=== PATIENT | female | born 1945 | race Caucasian/White ===

== ENCOUNTER → 2016-12-12 | Day surgery (SDC) | payer MEDICARE, OTHER ==
[~2016-12-12] MED LIST: Lactated Ringers 1,000 ML IV SCH; Propofol 200 MG/20 ML SDV IV ONE
[2016-12-12 11:21] VITALS: BP 138/75
--- NOTE | 2016-12-15 07:43 | OR ---
DATE OF OPERATION: 12/12/2016 PREOPERATIVE DIAGNOSIS: SCREENING COLONOSCOPY. POSTOPERATIVE DIAGNOSIS: SCREENING COLONOSCOPY. SURGEON: Barrington Nails MD PROCEDURE: FULL-LENGTH COLONOSCOPY WITH POLYP REMOVAL X1. 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 COMPLICATIONS: None. SPECIMEN: Rectal polyp likely hyperplastic. FINDINGS: 1. Full-length colonoscopy. 2. Moderate sigmoid diverticulosis. 3. Flat rectal polyp, likely hyperplastic. RECOMMENDATIONS: Follow up colonoscopy. Pending path report. INDICATIONS: The patient has not had a colonoscopy for over 12 years. She was sent for screening. DESCRIPTION OF PROCEDURE: The patient was prepped and draped, placed in the left lateral decubitus position. Lubricated Olympus colonoscope was inserted and relatively easily advanced to the cecum. Direct visualization of the cecal pouch was difficult due to the amount of stool present, it was very thick with particulate food matter, scope got plugged couple times trying irrigate through this, but we were able to see the valve. The pouch itself was difficult to visualize. Upon withdrawal for the most part, the ascending, transverse, and descending colons appeared benign. Prep was poor on the right side extending about the mid transverse colon. There were some sketchy areas on the left side as well. The patient does have moderate diverticular disease throughout most of the left colon through the sigmoid and rectosigmoid junction, but no obvious signs of polyps, masses, ulcerations, or bleeding sites. No vascular abnormalities or signs of colitis. The rectal vault appeared benign. There was a lot of food present here as well, and there was one flat hyperplastic appearing polyp removed with 2 cold forceps biopsies in its entirety. Retroflexion was able to be accomplished, and the perianal area appeared benign. Air was then suctioned. Scope removed without complication. DECLAN/FRANCINE /[id number]
== END ==
LOC: CC.SDS 09:54
PROVIDERS: ATTEND Family Medicine
DX: Z12.11 Encounter for screening for malignant neoplasm of colon (principal); D12.8 Benign neoplasm of rectum; K57.30 Diverticulosis of large intestine without perforation or abscess without bleeding; F41.9 Anxiety disorder, unspecified; I10 Essential (primary) hypertension; F32.9 Major depressive disorder, single episode, unspecified; F17.210 Nicotine dependence, cigarettes, uncomplicated; Z90.710 Acquired absence of both cervix and uterus; Z90.49 Acquired absence of other specified parts of digestive tract; Z98.84 Bariatric surgery status; Z98.890 Other specified postprocedural states
CPT/HCPCS: 45380; J2704; J7120; 00810; 88305

== ENCOUNTER 2017-02-23 18:45 | Emergency (ER) | payer MEDICARE, OTHER ==
[2017-02-23 18:54] VITALS: BP 127/66
[2017-02-23] MEDS ORDERED: Ondansetron 4 MG/2 ML SDV IVPUSH STA (19:21)
--- NOTE | 2017-02-23 19:32 | EDM.PDOC ---
ED HPI GENERAL MEDICAL PROBLEM - General Chief Complaint: General Stated Complaint: left side pain Time Seen by Provider: 02/23/17 19:05 Source of Information: Reports: Patient History Limitations: Reports: No Limitations - History of Present Illness INITIAL COMMENTS - FREE TEXT/NARRATIVE: This patient is a 71 year old female that presents to the ER. Patient is with her daughter. Patient reports that for the past 4 weeks she has had a pain in left lower back and left side and into her left lower abdominal quadrant. The patient reports that about 4 weeks ago she was treated for a UTI, but the pain continued. She reports that today she went to the grocery store and walked from her vehicle. She reports then as the day progressed her pain became worse. The patient described its as constant, but has periods where it feels like it "spasms" and becomes severe. The patient reports she is scheduled for an injection tomorrow, but she was afraid she would not be able to move tomorrow if she did not come to the ER for pain tonight. The patient denies diaz, dizziness , n, v, d, f, cp, soa, urinary/bowel changes. The pain is easily manipulated with palpation of the left lower back, left flank, and LLQ. Pain is made worse with the patient moving. I have reviewed recent patient visits and testing. Her BUN and CR have been a little higher than usual on last draw. She had an abdominal xray performed. I will order repeat labs to check renal function and to ensure no other findings of basic labs. I will also CT her abd/pelvis looking at kidneys and for possible stones. I have given her Valium in attempt to reduce spasms. Pulses +2, cap refill <2 sec, sensory/motor function intact, neurovascular intact. Patient is hemodynamically stable. Ongoing issue. Pain easily manipulated. No chest pain, or shortness of breath, no nausea; no indications of cardiac event or aortic event. Duration: Week(s): (4) Location: Reports: Abdomen, Back Quality: Reports: Other ("spasm") Severity: Moderate Improves with: Reports: Immobilization Worsens with: Reports: Movement Associated Symptoms: Denies: Confusion, Chest Pain, Cough, cough w sputum, Diaphoresis, Fever/Chills, Headaches, Loss of Appetite, Malaise, Nausea/Vomiting , Rash, Seizure, Shortness of Breath, Syncope, Weakness Left Hip Pain Score (Numeric/FACES): 9 - Related Data Allergies Allergy/AdvReac Type Severity Reaction Status Date / Time cefdinir [From Omnicef] Allergy Hives Verified 02/23/17 18:54 Home Meds: Home Meds Cholecalciferol (Vitamin D3) [Vitamin D] 2,000 units PO DAILY 10/05/14 [History] Hydrochlorothiazide 25 mg PO DAILY 10/05/14 [History] Losartan Potassium [Cozaar] 100 mg PO DAILY 10/05/14 [History] oxyCODONE ER [OxyCONTIN] 10 mg PO BID 10/05/14 [History] ClonazePAM [KlonoPIN] 0.25 mg PO BID 12/10/16 [History] Cyanocobalamin (Vitamin B-12) [Cyanocobalamin Injection] 1,000 mcg IM Q30D 12/10 [History] Eszopiclone 3 mg PO BEDTIME 12/10/16 [History] Fluticasone Propionate [Flovent Diskus] 2 sprays NASBOTH DAILY 12/10/16 [History ] Sertraline [Zoloft] 100 mg PO DAILY 12/10/16 [History] Cyclobenzaprine HCl 10 mg PO DAILY PRN 02/23/17 [History] Nystatin [Nystatin Crm] 1 applic TOP TID PRN 02/23/17 [History] Past Medical History HEENT History: Reports: Cataract Cardiovascular History: Reports: Heart Murmur, Hypertension Genitourinary History: Reports: UTI, Recurrent, Other (See Below) Other Genitourinary History: bilateral renal cysts, over-active bladder Musculoskeletal History: Reports: Arthritis, Back Pain, Chronic, Osteoporosis, Other (See Below) Other Musculoskeletal History: myalgia Neurological History: Reports: Other (See Below) Other Neuro History: degenerative disc disease Psychiatric History: Reports: ADHD, Anxiety, Depression, Other (See Below) Other Psychiatric History: insomnia, history of alcoholism Hematologic History: Reports: B12 Deficiency - Past Surgical History HEENT Surgical History: Reports: Cataract Surgery, Naso-Sinus Surgery GI Surgical History: Reports: Appendectomy, Bariatric Procedure, Cholecystectomy Female Surgical History: Reports: Hysterectomy Neurological Surgical History: Reports: Other (See Below) Other Neurological Surgeries/Procedures: back fusion in many areas Musculoskeletal Surgical History: Reports: Arthroscopic Knee, Knee Replacement, Other (See Below) Other Musculoskeletal Surgeries/Procedures:: pins placed in right foot and ankle Social & Family History - Tobacco Use Smoking Status *Q: Never Smoker Years of Tobacco use: 5 - Recreational Drug Use Recreational Drug Use: No ED ROS GENERAL - Review of Systems Review Of Systems: See Below Constitutional: Reports: No Symptoms HEENT: Reports: No Symptoms Respiratory: Reports: No Symptoms Cardiovascular: Reports: No Symptoms Endocrine: Reports: No Symptoms GI/Abdominal: Reports: Abdominal Pain. Denies: Constipation, Diarrhea, Nausea, Vomiting : Reports: Flank Pain (left) Musculoskeletal: Reports: Back Pain (left middle/lower. ) Skin: Reports: No Symptoms Neurological: Reports: No Symptoms Psychiatric: Reports: No Symptoms Hematologic/Lymphatic: Reports: No Symptoms Immunologic: Reports: No Symptoms ED EXAM, GENERAL - Physical Exam Exam: See Below Exam Limited By: No Limitations General Appearance: Alert, WD/WN, No Apparent Distress, Other (In Pain, especially with "spasms") Eye Exam: Bilateral Eye: Normal Inspection, PERRL Ears: Normal External Exam, Normal Canal, Hearing Grossly Normal, Normal TMs Ear Exam: Bilateral Ear: Auricle Normal, Canal Normal, TM normal Nose: Normal Inspection, Normal Mucosa, No Blood Throat/Mouth: Normal Inspection, Normal Lips, Normal Gums, Normal Oropharynx, Normal Voice, No Airway Compromise Head: Atraumatic, Normocephalic Neck: Normal Inspection, Supple, Non-Tender, Full Range of Motion. No: Lymphadenopathy (L), Lymphadenopathy (R) Respiratory/Chest: No Respiratory Distress, Lungs Clear, Normal Breath Sounds, No Accessory Muscle Use, Chest Non-Tender. No: Respiratory Distress, Decreased Breath Sounds, Crackles, Rales, Rhonchi, Wheezing, Stridor, Pleural Rub, Accessory Muscle Use, Retractions, Splinting, Prolonged Expiration Cardiovascular: Normal Peripheral Pulses, Regular Rate, Rhythm, No Edema, No Gallop, No JVD, No Murmur, No Rub Peripheral Pulses: 2+: Radial (L), Radial (R), Posterior Tibial (L), Posterior Tibial (R) GI/Abdominal: Normal Bowel Sounds, Soft, No Organomegaly, No Distention, No Abnormal Bruit, No Mass, Tender (LLQ, Mild. ) Back Exam: Normal Inspection, Full Range of Motion, Decreased Range of Motion ( due to pain. Unable to flex, twist, rotate at trunk. ), Muscle Spasm (per patient, left lower back, left lateral side, LLQ abd. ), Paraspinal Tenderness ( left lower/left middle back. Left lateral side. ). No: CVA Tenderness (L), CVA Tenderness (R) Extremities: Normal Inspection, Normal Range of Motion, Non-Tender, No Pedal Edema, Normal Capillary Refill Neurological: Alert, Oriented, Normal Cognition, No Motor/Sensory Deficits Psychiatric: Normal Affect, Normal Mood Skin Exam: Warm, Dry, Intact, Normal Color, No Rash Lymphatic: No Adenopathy Course - Vital Signs Last Recorded V/S: Last Vital Signs Temp 98.3 F 02/23/17 18:50 Pulse 87 02/23/17 18:50 Resp 20 02/23/17 18:50 BP 127/66 02/23/17 18:50 Pulse Ox 96 02/23/17 18:50 - Orders/Labs/Meds Orders: Active Orders 24 hr Category Date Time Status Abdomen Pelvis wo Cont [CT] Stat Exams 02/23/17 19:49 Ordered CULTURE URINE [RM] Stat Lab 02/23/17 20:14 Ordered Sodium Chloride 0.9% [Normal Saline] 500 ml Med 02/23/17 20:15 Active IV .BOLUS Medication Orders Sodium Chloride (Normal Saline) 500 mls @ 500 mls/hr IV .BOLUS VALENTINA Last Admin: 02/23/17 20:30 Dose: 500 mls/hr Labs: Laboratory Tests 02/23/17 02/23/17 02/23/17 Range/Units 19:45 19:45 20:00 WBC 6.6 (5.0-10.0) 10^3/uL RBC 3.64 L (4.00-5.50) 10^6/uL Hgb 10.6 L (12.0-16.0) g/dL Hct 33.1 L (37.0-47.0) % MCV 90.9 (82.0-94.0) fL MCH 29.1 (27.0-32.0) pg MCHC 32.0 L (33.0-38.0) g/dL RDW Coeff of Marlo 14.3 (11.0-15.0) % Plt Count 225 (150-400) 10^3/uL Neut % (Auto) 49.2 (35-85) % Lymph % (Auto) 32.5 (10-55) % [place] % (Auto) 12.2 (0-16) % Eos % (Auto) 5.5 H (0-5) % Baso % (Auto) 0.6 (0-3) % Neut # (Auto) 3.24 (1.80-7.00) 10^3/uL Lymph # (Auto) 2.14 (1.00-4.80) 10^3/uL [place] # (Auto) 0.80 (0.00-0.80) 10^3/uL Eos # (Auto) 0.36 (0.00-0.45) 10^3/uL Baso # (Auto) 0.04 10^3/uL Sodium 137 (136-145) mEq/L Potassium 4.7 (3.5-5.0) mEq/L Chloride 104 (98-106) mEq/L Carbon Dioxide 24 (21-32) mmol/L BUN 41 H (7-18) mg/dL Creatinine 1.6 H (0.6-1.0) mg/dL Est Cr Clr Drug Dosing TNP Estimated GFR (MDRD) 32 L (>=60) mL/min Glucose 94 (75-99) mg/dL Calcium 8.7 (8.4-10.1) mg/dL Total Bilirubin 0.3 (0.0-1.0) mg/dL AST 15 (15-37) U/L ALT 16 (12-78) U/L Alkaline Phosphatase 74 (46-116) U/L Total Protein 6.8 (6.4-8.2) g/dL Albumin 3.3 L (3.4-5.0) g/dL Urine Color Yellow (YELLOW) Urine Appearance Cloudy (CLEAR) Urine pH 5.0 (4.5-8.0) Ur Specific [place] 1.011 (1.003-1.020) Urine Protein Negative (NEGATIVE) mg/dL Urine Glucose (UA) Negative (NEGATIVE) mg/dL Urine Ketones Negative (NEGATIVE) mg/dL Urine Occult Blood Small H (NEGATIVE) Urine Nitrite Positive H (NEGATIVE) Urine Bilirubin Negative (NEGATIVE) Urine Urobilinogen 0.2 (0.2-1.0) EU/dL Ur Leukocyte Esterase Large H (NEGATIVE) Urine RBC 0-5 (0-5) /HPF Urine WBC 75-100 H (0-5) /HPF Urine WBC Clumps Few H (NOT SEEN) /HPF Ur Squamous Epith Cells Occasional H (NOT SEEN) /HPF Urine Bacteria Few H (NOT SEEN) /HPF Urinalysis Comment Meds: Medications Generic Name Dose Route Start Last Admin Trade Name Freq PRN Reason Stop Dose Admin Sodium Chloride 500 mls @ 500 mls/hr 02/23/17 20:15 02/23/17 20:30 Normal Saline IV 500 mls/hr .BOLUS VALENTINA Administration Discontinued Medications Generic Name Dose Route Start Last Admin Trade Name Freq PRN Reason Stop Dose Admin Ceftriaxone Sodium 1 gm 02/23/17 20:12 02/23/17 20:26 Rocephin IVPUSH 02/23/17 20:13 1 gm ONETIME ONE Administration Diazepam 2 mg 02/23/17 19:21 02/23/17 19:38 Valium IVPUSH 02/23/17 19:22 2 mg ONETIME ONE Administration Hydromorphone HCl 1 mg 02/23/17 19:56 02/23/17 20:23 Dilaudid IVPUSH 02/23/17 19:57 1 mg ONETIME ONE Administration Hydromorphone HCl 0.5 mg 02/23/17 21:08 02/23/17 21:10 Dilaudid IVPUSH 02/23/17 21:09 0.5 mg NOW STA Administration Ondansetron HCl 4 mg 02/23/17 19:21 02/23/17 19:35 Zofran IVPUSH 02/23/17 19:22 4 mg NOW STA Administration - Radiology Interpretation Free Text/Narrative:: Abd/Pelvis without: Discussed with radiologist: Cyst right renal pole unchanged from previous, dilated ureters, No stones. Constipation. Density in color that is benign. CT Results Date: 02/23/17 CT Results Time: 21:00 Departure - Departure Time of Disposition: 21:11 Disposition: Home, Self-Care 01 Condition: Fair Clinical Impression: UTI, Urinary tract infectious disease, Renal insufficiency Constipation Qualifiers: Constipation type: other constipation type Qualified Code(s): K59.09 - Other constipation - Discharge Information Instructions: Urinary Tract Infection, Adult, [id number], Constipation, Adult Referrals: Indira Cordon PA [Primary Care Provider] - Forms: ED Department Discharge Additional Instructions: Followup with your primary care provider Return to the ER for worsening of condition or any emergent concerns Increase fluids Increase fiber Pyridium 100mg 1 pill three times a day for 2 days #6 no refill Bactrim DS 1 pill twice a day for 7 days #14 no refill - My Orders Last 24 Hours: My Active Orders 02/23/17 19:49 Abdomen Pelvis wo Cont [CT] Stat 02/23/17 20:14 CULTURE URINE [RM] Stat 02/23/17 20:15 Sodium Chloride 0.9% [Normal Saline] 500 ml IV .BOLUS - Assessment/Plan Last 24 Hours: My Active Orders 02/23/17 19:49 Abdomen Pelvis wo Cont [CT] Stat 02/23/17 20:14 CULTURE URINE [RM] Stat 02/23/17 20:15 Sodium Chloride 0.9% [Normal Saline] 500 ml IV .BOLUS Plan: PLEASE SEE RN NOTE FOR PFSH.
[2017-02-23] MEDS ORDERED: HYDROmorphone 1 MG/ML Syringe IVPUSH ONE (19:56)
[2017-02-23 20:06] LABS: CHLORIDE,CL 104 mEq/L (98-106); SODIUM,NA 137 mEq/L (136-145)
[2017-02-23] MEDS ORDERED: cefTRIAXone 1 GM Vial IVPUSH ONE (20:12)
[2017-02-23] MEDS ORDERED: Sodium Chloride 0.9% 500 ML IV SCH (20:15)
[2017-02-23] MEDS ORDERED: HYDROmorphone 1 MG/ML Syringe IVPUSH STA (21:08)
== END 2017-02-23 21:30 | disposition home or self-care (01) ==
LOC: CC.ED 18:45
DX: N39.0 Urinary tract infection, site not specified (principal); N28.9 Disorder of kidney and ureter, unspecified; I10 Essential (primary) hypertension; M19.90 Unspecified osteoarthritis, unspecified site; M81.0 Age-related osteoporosis without current pathological fracture; F32.9 Major depressive disorder, single episode, unspecified; F90.9 Attention-deficit hyperactivity disorder, unspecified type; F41.9 Anxiety disorder, unspecified; G47.00 Insomnia, unspecified; Z87.440 Personal history of urinary (tract) infections; Z79.2 Long term (current) use of antibiotics; Z98.84 Bariatric surgery status; Z90.49 Acquired absence of other specified parts of digestive tract; Z98.49 Cataract extraction status, unspecified eye; Z90.710 Acquired absence of both cervix and uterus
CPT/HCPCS: 36415; 74176; 80053; 81001; 85025; 87086; 87088; 96361; 96374; 96375; 96376; 99284; J0696; J1170; J2405; J3360; J7040; 87186

== ENCOUNTER → 2018-12-31 | Day surgery (SDC) | payer MEDICARE, OTHER ==
[2018-12-31 12:35] VITALS: BP 151/90
--- NOTE | 2019-01-03 08:57 | OR ---
DATE OF OPERATION: 12/31/2018 PREOPERATIVE DIAGNOSIS: CHRONIC COUGH. POSTOPERATIVE DIAGNOSIS: CHRONIC COUGH. SURGEON: Barrington Nails MD PROCEDURE: DIAGNOSTIC ESOPHAGOGASTRODUODENOSCOPY WITH BIOPSY X1, PRASANNA. ANESTHESIA: MAC via PANEL BUILDER. COMPLICATIONS: None. SPECIMEN: 1. CLOtest. 2. Distal esophageal biopsy x1. FINDINGS: 1. Full-length esophagogastroduodenoscopy. 2. Status post antral gastrectomy. 3. Spontaneous gastroesophageal reflux disease with possible short segment White's changes. RECOMMENDATIONS: Ongoing medical followup. INDICATIONS: The patient apparently has been having some issues with chronic cough. She is on a proton pump inhibitor for gastroesophageal reflux disease. Anderson Chris sent her for diagnostic esophagogastroduodenoscopy. DESCRIPTION OF PROCEDURE: The patient was prepped and draped, placed in the left lateral decubitus position. A lubricated Olympus gastroscope was inserted over a bit, advanced to cricopharyngeus area, and easily intubated into the esophagus. The esophageal lining appeared benign in its entire course. The Z- line was crisp and sharp around 38 to 39 cm. There is one small area that appears to possibly represent some short segment White's. I did biopsy of the leading edge without complication. There is spontaneous reflux seen. No gross or significant hiatal hernia. Scope was advanced into the stomach, which is markedly shortened, apparently status post a partial gastrectomy. It looks like the entire antrum is gone. The jejunum looks completely unremarkable. I see no signs of any peptic ulcer disease, mass, polyps, or otherwise. A CLOtest was obtained. Air was then suctioned from the stomach. Scope was removed without complication. DECLAN/FRANCINE /[id number]
== END ==
LOC: CC.SDS 09:58
PROVIDERS: ATTEND Family Medicine
DX: K21.0 Gastro-esophageal reflux disease with esophagitis (principal); R05 Cough; Z90.3 Acquired absence of stomach [part of]; E53.8 Deficiency of other specified B group vitamins; I10 Essential (primary) hypertension; R73.03 Prediabetes; M81.0 Age-related osteoporosis without current pathological fracture; M19.90 Unspecified osteoarthritis, unspecified site; E66.9 Obesity, unspecified; Z68.41 Body mass index [BMI] 40.0-44.9, adult; Z87.891 Personal history of nicotine dependence; Z88.1 Allergy status to other antibiotic agents; Z86.39 Personal history of other endocrine, nutritional and metabolic disease; Z87.442 Personal history of urinary calculi
CPT/HCPCS: 87081; J2704; J7120

== ENCOUNTER 2020-09-03 20:20 | Observation (INO) | payer MEDICARE, OTHER ==
--- NOTE | 2020-09-03 20:54 | EDM.PDOC ---
ED HPI GENERAL MEDICAL PROBLEM - General Chief Complaint: General Stated Complaint: rectal bleeding Time Seen by Provider: 09/03/20 20:42 Source of Information: Reports: Patient, RN History Limitations: Reports: No Limitations - History of Present Illness INITIAL COMMENTS - FREE TEXT/NARRATIVE: States that she noted that her pants were wet earlier. When she checked she had bright red blood and clots in her pants. She has no pain and no abdominal cramping. She denies any hemorrhoids in the past. Since she changed her diaper she has noted that she is passing clots again. She has no urge or control of the clots. Is not aware of them until she feels them in her product. No nausea or vomiting. She has had complete hysterectomy in the past. She had a total shoulder repair on the right 2 weeks again but denies any steroid or NSAID use. She has taken some tylenol for pain. Last colonoscopy 11/12/16 and was normal. She has never had problems with rectal bleeding in the past. She states that she feels "fine". Onset: Today Location: Reports: Abdomen Associated Symptoms: Denies: Fever/Chills, Nausea/Vomiting - Related Data Allergies Allergy/AdvReac Type Severity Reaction Status Date / Time cefdinir [From Omnicef] Allergy Hives Verified 09/03/20 20:23 tramadol Allergy Itching Verified 09/03/20 20:24 Home Meds: Home Meds Cyanocobalamin (Vitamin B-12) [Cyanocobalamin Injection] 1,000 mcg IM Q60D 12/10/16 [History] Eszopiclone 3 mg PO BEDTIME 12/10/16 [History] Acetaminophen [Tylenol Extra Strength] 1,000 mg PO ASDIRECTED PRN 07/15/18 [History] Ibuprofen 400 mg PO ASDIRECTED PRN 07/15/18 [History] Aspirin [Halfprin] 81 mg PO DAILY 09/03/20 [History] Montelukast [Singulair] 10 mg PO DAILY 09/03/20 [History] Potassium Chloride [K-Tab ER] 20 meq PO BID 09/03/20 [History] lamoTRIgine [Lamictal XR] 50 mg PO BEDTIME 09/03/20 [History] Past Medical History HEENT History: Reports: Cataract Cardiovascular History: Reports: Heart Murmur, Hypertension Genitourinary History: Reports: UTI, Recurrent, Other (See Below) Other Genitourinary History: bilateral renal cysts, over-active bladder Musculoskeletal History: Reports: Arthritis, Back Pain, Chronic, Osteoporosis, Other (See Below) Other Musculoskeletal History: myalgia Neurological History: Reports: Other (See Below) Other Neuro History: degenerative disc disease Psychiatric History: Reports: ADHD, Anxiety, Depression, Other (See Below) Other Psychiatric History: insomnia, history of alcoholism Hematologic History: Reports: B12 Deficiency - Past Surgical History HEENT Surgical History: Reports: Cataract Surgery, Naso-Sinus Surgery GI Surgical History: Reports: Appendectomy, Bariatric Procedure, Cholecystectomy Female Surgical History: Reports: Hysterectomy Neurological Surgical History: Reports: Other (See Below) Other Neurological Surgeries/Procedures: back fusion in many areas Musculoskeletal Surgical History: Reports: Arthroscopic Knee, Knee Replacement, Shoulder Replacement, Other (See Below) Other Musculoskeletal Surgeries/Procedures:: pins placed in right foot and ankle Social & Family History - Tobacco Use Tobacco Use Status *Q: Never Tobacco User - Living Situation & Occupation Living situation: Reports: Single, Alone Occupation: Retired ED ROS GENERAL - Review of Systems Review Of Systems: See Below Constitutional: Reports: No Symptoms Respiratory: Reports: No Symptoms Cardiovascular: Reports: No Symptoms GI/Abdominal: Reports: Bloody Stool. Denies: Abdominal Pain, Constipation, Diarrhea, Nausea, Vomiting : Reports: No Symptoms Musculoskeletal: Reports: Other (shoulder surgery 2 weeks ago.) Neurological: Reports: No Symptoms Psychiatric: Reports: No Symptoms ED EXAM, GENERAL - Physical Exam Exam: See Below Exam Limited By: No Limitations General Appearance: Alert, WD/WN, No Apparent Distress Ears: Normal External Exam, Normal Canal, Normal TMs Throat/Mouth: Normal Oropharynx Head: Atraumatic, Normocephalic Neck: Normal Inspection, Supple, Non-Tender Respiratory/Chest: No Respiratory Distress, Lungs Clear, Normal Breath Sounds Cardiovascular: Regular Rate, Rhythm, No Edema GI/Abdominal: Normal Bowel Sounds, Soft, Non-Tender, No Organomegaly, Other (rectal reveals bright red blood with clots. No hemorroid noted. Not tender to palpation.) Rectal (Female) Exam: Bloody Stool, Other (bright red blood and clots noted on exam. No tenderness or hemorroids noted.). No: Hemorrhoids, Tenderness Extremities: Normal Inspection Neurological: Alert, Oriented Skin Exam: Warm, Dry, Intact Course - Orders/Labs/Meds Orders: Active Orders 24 hr Category Date Time Status COMPREHENSIVE METABOLIC PN,CMP [CHEM] Stat Lab 09/03/20 20:47 Received Labs: Laboratory Tests 09/03/20 Range/Units 20:47 WBC 8.0 (5.0-10.0) 10^3/uL RBC 3.35 L (4.00-5.50) 10^6/uL Hgb 9.6 L (12.0-16.0) g/dL Hct 29.8 L (37.0-47.0) % MCV 89.0 (82.0-94.0) fL MCH 28.7 (27.0-32.0) pg MCHC 32.2 L (33.0-38.0) g/dL RDW Coeff of Marlo 16.2 H (11.0-15.0) % Plt Count 391 (150-400) 10^3/uL Neut % (Auto) 55.6 (35-85) % Lymph % (Auto) 28.0 (10-55) % [place] % (Auto) 8.8 (0-16) % Eos % (Auto) 6.1 H (0-5) % Baso % (Auto) 1.5 (0-3) % Neut # (Auto) 4.45 (1.80-7.00) 10^3/uL Lymph # (Auto) 2.24 (1.00-4.80) 10^3/uL [place] # (Auto) 0.70 (0.00-0.80) 10^3/uL Eos # (Auto) 0.49 H (0.00-0.45) 10^3/uL Baso # (Auto) 0.12 10^3/uL - Re-Assessments/Exams Free Text/Narrative Re-Assessment/Exam: 09/03/20 21:08 Hgb is down from previous but she had surgery 2 weeks ago. For the small amount of blood that she has lost It is doubtful that it is acute loss. Will admit to observation and repeat hgb in the AM. If she has increase blood loss then will repeat earlier. Departure - Departure Time of Disposition: 21:13 Disposition: Refer to Observation Condition: Fair Clinical Impression: Rectal bleed - Discharge Information *PRESCRIPTION DRUG MONITORING PROGRAM REVIEWED*: Not Applicable *COPY OF PRESCRIPTION DRUG MONITORING REPORT IN PATIENT TIBURCIO: Not Applicable Instructions: Rectal Bleeding Forms: ED Department Discharge - Problem List & Annotations (1) Rectal bleed SNOMED Code(s): 92684215 Code(s): K62.5 - HEMORRHAGE OF ANUS AND RECTUM Status: Acute Priority: High - Problem List Review Problem List Initiated/Reviewed/Updated: Yes - My Orders Last 24 Hours: My Active Orders 09/03/20 20:47 COMPREHENSIVE METABOLIC PN,CMP [CHEM] Stat - Assessment/Plan Admission H&P: Please use this note as an admission H&P Last 24 Hours: My Active Orders 09/03/20 20:47 COMPREHENSIVE METABOLIC PN,CMP [CHEM] Stat Plan: Will admit to observation and do repeat hgb in the AM. She is eating and drinking without any distress. Will keep her on clear liquids over night in case the bleeding gets worse. Monitor the amount of bleeding during night.
[2020-09-03 21:02] LABS: CHLORIDE,CL 105 mEq/L (98-106); SODIUM,NA 139 mEq/L (136-145)
[2020-09-03] MEDS ORDERED: Acetaminophen 325 MG Tab PO PRN (21:18)
[2020-09-03] MEDS ORDERED: Sodium Chloride 0.9% 10 ML Syringe FLUSH PRN (21:18)
[2020-09-03] MEDS ORDERED: Ondansetron 4 MG Tab.DIS PO PRN (21:18)
[2020-09-03] MEDS ORDERED: Acetaminophen 500 MG Tab PO PRN (21:22)
[2020-09-04] MEDS ORDERED: Aspirin 81 MG Tab.EC PO SCH (08:00)
[2020-09-04] MEDS ORDERED: Montelukast 10 MG Tab PO SCH (08:00)
[2020-09-04] MEDS ORDERED: POTASSIUM CHLORIDE 20 MEQ PO SCH ×2 (08:00→08:45)
[2020-09-04 08:13] VITALS: BP 127/73; PULSE 65
[2020-09-04] MEDS ORDERED: ASPIRIN 81 MG PO SCH (08:45)
--- NOTE | 2020-09-04 08:59 | PCM.DCSUM1 ---
Discharge Summary - Hospital Course HPI Initial Comments: Asia is a 74 yo female who was admitted to the hospital yesterday evening with concerns of bright red blood per rectum. Prior to presenting to the ED she had noticed that her pants were wet. When she checked she had bright red blood and clots in her pants. She has no pain and no abdominal cramping. She denies any hemorrhoids in the past. Since she changed her diaper she has noted that she is passing clots again. She has no urge or control of the clots. Is not aware of them until she feels them in her pants. She had a total shoulder repair on the right 2 weeks again but denies any steroid or NSAID use. Was started on aspirin after surgery. She has only taken Tylenol for pain. Last colonoscopy 11/12/16 and showed flat tubular adenoma. She has never had problems with rectal bleeding in the past. - Discharge Data Discharge Date: 09/04/20 Discharge Disposition: Home, Self-Care 01 Condition: Fair - Referral to Home Health Primary Care Physician: Rodney Chris PA-C - Discharge Diagnosis/Problem(s) (1) Rectal bleed SNOMED Code(s): 14496233 ICD Code: K62.5 - HEMORRHAGE OF ANUS AND RECTUM Status: Resolved Priority: High Current Visit: No - Discharge Plan *PRESCRIPTION DRUG MONITORING PROGRAM REVIEWED*: Not Applicable *COPY OF PRESCRIPTION DRUG MONITORING REPORT IN PATIENT TIBURCIO: Not Applicable Home Medications: Home Meds Cyanocobalamin (Vitamin B-12) [Cyanocobalamin Injection] 1,000 mcg IM Q60D 12/10/16 [History] Eszopiclone 3 mg PO BEDTIME 12/10/16 [History] Acetaminophen [Tylenol Extra Strength] 1,000 mg PO ASDIRECTED PRN 07/15/18 [History] Ibuprofen 400 mg PO ASDIRECTED PRN 07/15/18 [History] Aspirin [Halfprin] 81 mg PO DAILY 09/03/20 [History] Montelukast [Singulair] 10 mg PO DAILY 09/03/20 [History] Potassium Chloride [K-Tab ER] 20 meq PO BID 09/03/20 [History] lamoTRIgine [Lamictal XR] 50 mg PO BEDTIME 09/03/20 [History] Vortioxetine Hydrobromide [Trintellix] 10 mg PO 09/04/20 [History] amLODIPine Besylate [Amlodipine Besylate] 5 mg PO DAILY 09/04/20 [History] Patient Handouts: Rectal Bleeding Forms: ED Department Discharge Referrals: Rodney Chris PA-C [Primary Care Provider] - - Discharge Summary/Plan Comment DC Time >30 min.: Yes Discharge Summary/Plan Comment: Asia is in good spirits this morning and requesting to go home. No further bleeding since last night. Consulted with Dr. Nails in regards to Asia's condition and will set up for colonoscopy on Thursday. Likely secondary to recent aspirin use and will proceed with diagnostic colonoscopy to determine source of bleeding. Will discharge home today with no changes in medications as no further bright red blood. Patient and daughter both in room and in agreement. Advised Asia if any further bleeding she needs to return for reevaluation. Patient in agreement. - General Info Date of Service: 09/04/20 Subjective Update: Asia is doing well this morning. Denies any symptoms at all. States she is ready to go home. Daughter is present this morning as well. Functional Status: Reports: Tolerating Diet, Ambulating, Urinating. Denies: New Symptoms - Review of Systems General: Reports: No Symptoms HEENT: Reports: No Symptoms Pulmonary: Reports: No Symptoms Cardiovascular: Reports: No Symptoms Gastrointestinal: Denies: Abdominal Pain, Decreased Appetite, Diarrhea, Hematochezia, Nausea, Vomiting Genitourinary: Reports: No Symptoms Musculoskeletal: Reports: No Symptoms Skin: Reports: No Symptoms Neurological: Reports: No Symptoms - Patient Data Vitals - Most Recent: Last Vital Signs Temp 97.9 F 09/04/20 08:00 Pulse 65 09/04/20 08:00 Resp 20 09/04/20 08:00 BP 127/73 09/04/20 08:00 Pulse Ox 94 L 09/04/20 08:00 Weight - Most Recent: 209 lb 12.8 oz I&O - Last 24 hours: Intake & Output 09/03/20 09/04/20 09/04/20 22:59 06:59 14:59 Output Total 900 Balance -900 Lab Results - Last 24 hrs: Laboratory Results - last 24 hr 09/03/20 09/03/20 09/04/20 Range/Units 20:47 20:47 07:18 WBC 8.0 5.7 (5.0-10.0) 10^3/uL RBC 3.35 L 3.32 L (4.00-5.50) 10^6/uL Hgb 9.6 L 9.2 L (12.0-16.0) g/dL Hct 29.8 L 29.7 L (37.0-47.0) % MCV 89.0 89.5 (82.0-94.0) fL MCH 28.7 27.7 (27.0-32.0) pg MCHC 32.2 L 31.0 L (33.0-38.0) g/dL RDW Coeff of Marlo 16.2 H 15.8 H (11.0-15.0) % Plt Count 391 366 (150-400) 10^3/uL Neut % (Auto) 55.6 52.1 (35-85) % Lymph % (Auto) 28.0 28.3 (10-55) % Clay % (Auto) 8.8 9.9 (0-16) % Eos % (Auto) 6.1 H 7.6 H (0-5) % Baso % (Auto) 1.5 2.1 (0-3) % Neut # (Auto) 4.45 2.96 (1.80-7.00) 10^3/uL Lymph # (Auto) 2.24 1.61 (1.00-4.80) 10^3/uL Clay # (Auto) 0.70 0.56 (0.00-0.80) 10^3/uL Eos # (Auto) 0.49 H 0.43 (0.00-0.45) 10^3/uL Baso # (Auto) 0.12 0.12 10^3/uL Sodium 139 (136-145) mEq/L Potassium 4.4 D (3.5-5.0) mEq/L Chloride 105 (98-106) mEq/L Carbon Dioxide 25 (21-32) mmol/L BUN 26 H (7-18) mg/dL Creatinine 1.7 H (0.6-1.0) mg/dL Est Cr Clr Drug Dosing TNP Estimated GFR (MDRD) 29 L (>=60) mL/min Glucose 102 H (75-99) mg/dL Calcium 9.5 (8.4-10.1) mg/dL Total Bilirubin 0.3 (0.0-1.0) mg/dL AST 15 (15-37) U/L ALT 16 (12-78) U/L Alkaline Phosphatase 102 (46-116) U/L Total Protein 6.8 (6.4-8.2) g/dL Albumin 3.2 L (3.4-5.0) g/dL Med Orders - Current: Current Medications Acetaminophen (Tylenol) 650 mg PO Q4H PRN PRN Reason: Pain (Mild 1-3)/fever Acetaminophen (Tylenol Extra Strength) 1,000 mg PO ASDIRECTED PRN PRN Reason: Pain Montelukast Sodium (Singulair) 10 mg PO BEDTIME [facility] Eszopiclone [ Eszopiclone] 3 Mg Tab Ptom 0 mg PO BEDTIME [facility] Lamotrigine 25mg Tab (Ptom) 0 mg PO BEDTIME [facility] Potassium Chloride [ K-Tab Er] 20 Meq Tab Ptom 0 meq PO BIDMEALS [facility] Aspirin 81mg Chew (Ptom) 0 each PO DAILY [facility] Ondansetron HCl (Zofran Odt) 4 mg PO Q6H PRN PRN Reason: nausea, able to take PO Sodium Chloride (Saline Flush) 10 ml FLUSH ASDIRECTED PRN PRN Reason: Keep Vein Open Discontinued Medications Aspirin (Halfprin) 81 mg PO DAILY [facility] Montelukast Sodium (Singulair) 10 mg PO DAILY [facility] Non-Formulary Medication (Potassium Chloride [K-Tab Er]) 20 meq PO BID [facility] - Exam General: Reports: Alert, Oriented, Cooperative, No Acute Distress Neck: Reports: Supple Lungs: Reports: Clear to Auscultation, Normal Respiratory Effort Cardiovascular: Reports: Regular Rate, Regular Rhythm, No Murmurs GI/Abdominal Exam: Normal Bowel Sounds, Soft, Non-Tender, No Organomegaly, No Distention, No Mass Extremities: Normal Inspection, No Pedal Edema Skin: Reports: Warm, Dry, Intact Psy/Mental Status: Reports: Alert, Normal Affect, Normal Mood
[2020-09-04] MEDS ORDERED: LAMOTRIGINE 25 MG PO SCH (20:00)
[2020-09-04] MEDS ORDERED: MONTELUKAST 10 MG PO SCH (20:00)
[2020-09-04] MEDS ORDERED: ESZOPICLONE 3 MG PO SCH (20:00)
== END 2020-09-04 10:05 | disposition home or self-care (01) ==
LOC: CC.ED 20:20 → CC.MS 21:18 → UNDOADMOB 21:23
PROVIDERS: ADMIT Physician Assistant Medical; ATTEND Family Medicine
DX: K62.5 Hemorrhage of anus and rectum (principal); I10 Essential (primary) hypertension; E53.8 Deficiency of other specified B group vitamins; Z20.822 Contact with and (suspected) exposure to COVID-19; Z88.8 Allergy status to other drugs, medicaments and biological substances; Z79.899 Other long term (current) drug therapy; Z79.82 Long term (current) use of aspirin; Z98.890 Other specified postprocedural states; Z98.84 Bariatric surgery status
CPT/HCPCS: 36415; 80053; 85025; 99217; 99220; 99284; G0378; U0002

== ENCOUNTER → 2020-09-07 | Day surgery (SDC) | payer MEDICARE, OTHER ==
[~2020-09-07] MED LIST changes: +Ketamine 200 MG/20 ML MDV ONE; -Lactated Ringers 1,000 ML IV SCH; -Propofol 200 MG/20 ML SDV IV ONE; +Propofol 200 MG/20 ML SDV ONE
[2020-09-07] MEDS: Lactated Ringers 1,000 ML IV SCH (07:53)
[2020-09-07 09:25] VITALS: BP 116/63; PULSE 77
--- NOTE | 2020-09-07 10:07 | OR ---
DATE OF OPERATION: 09/07/2020 PREOPERATIVE DIAGNOSIS: BRIGHT RED BLOOD PER RECTUM. POSTOPERATIVE DIAGNOSIS: BRIGHT RED BLOOD PER RECTUM. SURGEON: Barrington Nails MD PROCEDURE: COLONOSCOPY TO DEEP RIGHT COLON. ANESTHESIA: MAC. COMPLICATIONS: None. SPECIMEN: None. FINDINGS: 1. Colonoscopy to approximate mid ascending colon. 2. Extremely poor bowel prep. 3. Severe sigmoid diverticulosis. 4. Prominent internal hemorrhoids. RECOMMENDATIONS: Medical followup with Anderson Chris. INDICATIONS: The patient was recently in our facility for bright red blood per rectum. She presented to our facility. Basically did fine. She had been on aspirin postop shoulder repair. She had never had any problems apparently with this in the past. Anderson Chris monitored overnight and she was stable. She ultimately was discharged home with followup instructions for a colonoscopy. DESCRIPTION OF PROCEDURE: The patient was prepped and draped, placed in the left lateral decubitus position. Lubricated Olympus colonoscope was inserted. Unfortunately, the patient had a very poor prep. Significant amount of stool throughout the entire colon. Transverse colon a little better than anywhere else, but we were able to get over across the hepatic flexure, and then we ran into pretty much solid stool and could not get down into the cecum. The patient is in extremely challenging scope anyway with severe diverticular disease in the sigmoid and she is very redundant. This mixed with the volume of stool made it very challenging to even get over to the right colon. Certainly, the stool decreased the sensitivity of the procedure as lesion certainly might have been missed as most of the stool could not be suctioned due to the amount of particulate matter. Upon withdrawal, throughout the ascending and transverse area, I could see no obvious abnormalities. No obvious lesions in the descending colon. Sigmoid colon has severe diverticulosis, but no obvious inflammatory changes, polyps, masses, or otherwise. Could not see any active bleeding sites or signs of colitis. The rectal vault was very difficult to see, and just due to the volume of stool present, I was able to irrigate and suction some of this, retroflex. It looks like she has a lot of perianal hemorrhoid disease, but I do not see any obvious masses or lesions. There was a lot of stool around the perianal region as well. Ultimately, we suctioned air and removed the scope without any complication. DECLAN/FRANCINE /[id number]
== END ==
LOC: CC.SDS 07:27
PROVIDERS: ATTEND Family Medicine
DX: K57.31 Diverticulosis of large intestine without perforation or abscess with bleeding (principal); K64.8 Other hemorrhoids; I10 Essential (primary) hypertension; E66.9 Obesity, unspecified; Z79.899 Other long term (current) drug therapy; Z68.31 Body mass index [BMI] 31.0-31.9, adult
CPT/HCPCS: 00811; 45378; J2704; J7120

== ENCOUNTER 2021-08-17 05:30 | Emergency (ER) | payer MEDICARE, OTHER ==
[2021-08-17 05:43] VITALS: BP 151/94; PULSE 83
[2021-08-17] MEDS: Orphenadrine 60 MG/2 ML Inj IM ONE (06:10)
== END 2021-08-17 08:39 | disposition home or self-care (01) ==
LOC: SUPCPDRO 05:30 → CC.ED 05:30
DX: M24.412 Recurrent dislocation, left shoulder (principal); I10 Essential (primary) hypertension; Z88.1 Allergy status to other antibiotic agents; Z88.5 Allergy status to narcotic agent
CPT/HCPCS: 23650; 73030-LT; 96372; 99283-25; J2360

== ENCOUNTER 2023-07-26 07:25 | Emergency (ER) | payer MEDICARE, OTHER ==
[2023-07-26] MEDS ORDERED: Sodium Chloride 0.9% 10 ML Syringe FLUSH PRN (07:52)
[2023-07-26 08:11] LABS: BASOPHILS ABSOLUTE AUTO 0.08 10^3/uL (0.00-0.50); BASOPHILS PERCENT AUTO 0.7 % (0-1); EOSINOPHILS ABSOLUTE AUTO 0.34 10^3/uL (0.00-1.50); EOSINOPHILS PERCENT AUTO 3.1 % (0-6); HEMATOCRIT 41.1 % (37.0-47.0); HEMOGLOBIN 13.2 g/dL (12.0-16.0); IMMATURE GRAN ABSOLUTE AUTO 0.06 10^3/uL (0.00-0.49); IMMATURE GRAN PERCENT AUTO 0.5 % (0.0-4.9); LYMPHOCYTES ABSOLUTE AUTO 1.28 10^3/uL (0.60-5.00); LYMPHOCYTES PERCENT AUTO 11.6 % (24-44); MEAN CORPUSCULAR HEMOGLOBIN 30.5 pg (27.0-32.0); MEAN CORPUSCULAR HGB CONC 32.1 g/dL (32.0-36.0); MEAN CORPUSCULAR VOLUME 94.9 fL (83.0-97.0); MONOCYTES ABSOLUTE AUTO 0.99 10^3/uL (0.00-1.50); NEUTROPHILS ABSOLUTE AUTO 8.25 x10^3/uL (1.80-8.00); NEUTROPHILS PERCENT AUTO 75.1 % (41-71); PLATELET COUNT,PLT 252 10^3/uL (150-400); RED BLOOD CELL COUNT 4.33 x10^6/uL (4.00-5.50)
[2023-07-26 08:12] LABS: APPEARANCE,URINE CLEAR (CLEAR); BILIRUBIN,URINE NEGATIVE (NEGATIVE); COLOR,URINE YELLOW (YELLOW); GLUCOSE,URINE NEGATIVE (NEGATIVE); KETONES,URINE NEGATIVE (NEGATIVE); LEUKOCYTE ESTERASE,URINE NEGATIVE (NEGATIVE); NITRITE,URINE NEGATIVE (NEGATIVE); OCCULT BLOOD,URINE TRACE-INTACT (NEGATIVE); PH,URINE 5.5 (4.5-8.0); PROTEIN,URINE NEGATIVE (NEGATIVE); UROBILINOGEN,URINE 0.2 EU/dL (0.2-1.0)
[2023-07-26 08:25] LABS: ALANINE AMINOTRANSFERASE,ALT 17 U/L (12-78); ALKALINE PHOSPHATASE 122 U/L (46-116); ASPARTATE AMNIOTRANSFERASE,AST 21 U/L (15-37); BILIRUBIN TOTAL 0.4 mg/dL (0.0-1.0); BLOOD UREA NITROGEN,BUN 21 mg/dL (7-18); CALCIUM 9.6 mg/dL (8.4-10.1); CARBON DIOXIDE,CO2 27 mmol/L (21-32); CHLORIDE,CL 103 mEq/L (98-106); CREATININE 1.5 mg/dL (0.6-1.0); EST CRCL DRUG DOSING (CG) 30.06 mL/min; GLUCOSE RANDOM 104 mg/dL (75-99); MAGNESIUM 1.9 mg/dL (1.8-2.4); POTASSIUM,K 4.2 mEq/L (3.5-5.0); PROTEIN TOTAL,TP 7.4 g/dL (6.4-8.2); SODIUM,NA 140 mEq/L (136-145)
[2023-07-26 08:28] LABS: BACTERIA,URINE RARE /HPF (NOT SEEN); EPITHELIAL CELLS,URINE OCCASIONAL /HPF (NOT SEEN); RBC,URINE 0-5 /HPF (0-5); WBC,URINE 0-5 /HPF (0-5)
[2023-07-26 08:29] LABS: C-REACTIVE PROTEIN < 0.50 mg/dL (<=0.50); ESTIMATED GFR 35 mL/min (>=60)
[2023-07-26 11:07] VITALS: BP 133/69; PULSE 77
== END 2023-07-26 10:50 | disposition home or self-care (01) ==
LOC: CC.ED 07:25
DX: M25.552 Pain in left hip (principal); I10 Essential (primary) hypertension; Z88.1 Allergy status to other antibiotic agents; Z88.5 Allergy status to narcotic agent; Z79.899 Other long term (current) drug therapy; W19.XXXA Unspecified fall, initial encounter; Z90.49 Acquired absence of other specified parts of digestive tract; Z90.710 Acquired absence of both cervix and uterus
CPT/HCPCS: 36415; 70450; 72131; 80053; 81001; 83735; 85025; 86140; 99284

== ENCOUNTER 2023-07-30 16:05 | Inpatient (IN) | payer MEDICARE, OTHER ==
[2023-07-30] MEDS ORDERED: Sodium Chloride 0.9% 10 ML Syringe FLUSH PRN (16:17)
[2023-07-30] MEDS ORDERED: Ketorolac 30 MG/ML SDV IVPUSH ONE (16:17)
[2023-07-30 18:33] LABS: BASOPHILS ABSOLUTE AUTO 0.07 10^3/uL (0.00-0.50); BASOPHILS PERCENT AUTO 0.9 % (0-1); EOSINOPHILS PERCENT AUTO 6.3 % (0-6); HEMATOCRIT 38.9 % (37.0-47.0); HEMOGLOBIN 12.4 g/dL (12.0-16.0); IMMATURE GRAN ABSOLUTE AUTO 0.06 10^3/uL (0.00-0.49); IMMATURE GRAN PERCENT AUTO 0.8 % (0.0-4.9); LYMPHOCYTES ABSOLUTE AUTO 1.11 10^3/uL (0.60-5.00); LYMPHOCYTES PERCENT AUTO 13.9 % (24-44); MEAN CORPUSCULAR HEMOGLOBIN 30.7 pg (27.0-32.0); MEAN CORPUSCULAR HGB CONC 31.9 g/dL (32.0-36.0); MEAN CORPUSCULAR VOLUME 96.3 fL (83.0-97.0); MONOCYTES ABSOLUTE AUTO 0.92 10^3/uL (0.00-1.50); MONOCYTES PERCENT AUTO 11.5 % (0-10); NEUTROPHILS ABSOLUTE AUTO 5.31 x10^3/uL (1.80-8.00); NEUTROPHILS PERCENT AUTO 66.6 % (41-71); PLATELET COUNT,PLT 236 10^3/uL (150-400); RED BLOOD CELL COUNT 4.04 x10^6/uL (4.00-5.50)
[2023-07-30 18:47] LABS: ALBUMIN 3.6 g/dL (3.4-5.0); BILIRUBIN TOTAL 0.5 mg/dL (0.0-1.0); CALCIUM 9.7 mg/dL (8.4-10.1); CREATININE 1.7 mg/dL (0.6-1.0); EST CRCL DRUG DOSING (CG) 26.52 mL/min; POTASSIUM,K 4.6 mEq/L (3.5-5.0); PROTEIN TOTAL,TP 6.9 g/dL (6.4-8.2)
[2023-07-30] MEDS ORDERED: Bisacodyl 5 MG Tab PO PRN (18:51)
[2023-07-30] MEDS ORDERED: Morphine 2 MG/ML SYRINGE IVPUSH PRN (18:51)
[2023-07-30] MEDS ORDERED: Ondansetron 4 MG Tab.DIS PO PRN (18:51)
[2023-07-30] MEDS ORDERED: Acetaminophen 325 MG Tab PO PRN (18:51)
[2023-07-30] MEDS ORDERED: FLU (Fluad Quad) 2023-24(65UP)/MF59C/PF 60 MCG/0.5 ML Syringe IM ONE (19:15)
[2023-07-30] MEDS: lamoTRIgine 100 MG Tab PO SCH (19:16)
[2023-07-30] MEDS ORDERED: Zolpidem 5 MG Tab PO SCH (20:00)
[2023-07-31] MEDS: Acetaminophen/HYDROcodone 325-5 MG Tab PO PRN ×4 (01:59→17:59)
[2023-07-31 07:11] LABS: APPEARANCE,URINE CLEAR (CLEAR); BILIRUBIN,URINE NEGATIVE (NEGATIVE); COLOR,URINE DARK YELLOW (YELLOW); GLUCOSE,URINE NEGATIVE (NEGATIVE); KETONES,URINE NEGATIVE (NEGATIVE); LEUKOCYTE ESTERASE,URINE TRACE (NEGATIVE); NITRITE,URINE NEGATIVE (NEGATIVE); OCCULT BLOOD,URINE NEGATIVE (NEGATIVE); PH,URINE 5.5 (4.5-8.0); PROTEIN,URINE NEGATIVE (NEGATIVE)
[2023-07-31 07:37] LABS: BACTERIA,URINE OCCASIONAL /HPF (NOT SEEN); CALCIUM OXALATE CRYSTALS,URINE MODERATE /HPF (NOT SEEN); RBC,URINE NOT SEEN /HPF (0-5); SQUAMOUS EPITHELIAL CELLS,UR FEW /HPF (NOT SEEN)
[2023-07-31] MEDS: Furosemide 20 MG Tab PO SCH (07:38)
[2023-07-31] MEDS: buPROPion 150 MG Tab.ER PO SCH (07:38)
[2023-07-31] MEDS: amLODIPine 2.5 MG Tab PO SCH (07:38)
[2023-07-31] MEDS ORDERED: FLU (Fluad Quad) 2023-24(65UP)/MF59C/PF 60 MCG/0.5 ML Syringe IM ONE (08:00)
[2023-07-31] MEDS: Enoxaparin 30 MG/0.3 ML Syringe SUBCUT SCH (12:28)
[2023-07-31] MEDS: Sulfamethoxazole/Trimethoprim 800-160 MG Tab PO SCH ×2 (12:30→19:27)
[2023-07-31] MEDS ORDERED: Nitrofurantoin Monohydrate/Macrocrystalline 100 MG Cap PO SCH (17:30)
[2023-07-31] MEDS: lamoTRIgine 100 MG Tab PO SCH (19:27)
[2023-07-31] MEDS ORDERED: Temazepam 15 MG Cap PO PRN (20:55)
[2023-08-01] MEDS: Acetaminophen/HYDROcodone 325-5 MG Tab PO PRN ×5 (03:01→22:15)
[2023-08-01] MEDS: buPROPion 150 MG Tab.ER PO SCH (08:06)
[2023-08-01] MEDS: Furosemide 20 MG Tab PO SCH (08:06)
[2023-08-01] MEDS: Sulfamethoxazole/Trimethoprim 800-160 MG Tab PO SCH ×2 (08:06→19:24)
[2023-08-01] MEDS: amLODIPine 2.5 MG Tab PO SCH (08:09)
[2023-08-01] MEDS: Enoxaparin 30 MG/0.3 ML Syringe SUBCUT SCH (12:08)
[2023-08-01] MEDS: lamoTRIgine 100 MG Tab PO SCH (19:25)
[2023-08-02] MEDS: Acetaminophen/HYDROcodone 325-5 MG Tab PO PRN ×5 (02:56→22:30)
[2023-08-02] MEDS: amLODIPine 2.5 MG Tab PO SCH (07:28)
[2023-08-02] MEDS: Furosemide 20 MG Tab PO SCH (07:28)
[2023-08-02] MEDS: buPROPion 150 MG Tab.ER PO SCH (07:28)
[2023-08-02] MEDS: Sulfamethoxazole/Trimethoprim 800-160 MG Tab PO SCH ×2 (07:28→19:07)
[2023-08-02] MEDS: Enoxaparin 30 MG/0.3 ML Syringe SUBCUT SCH (13:18)
[2023-08-02] MEDS: lamoTRIgine 100 MG Tab PO SCH (19:07)
[2023-08-02] MEDS ORDERED: ESZOPICLONE 3 MG PO SCH (20:00)
[2023-08-03] MEDS: Acetaminophen/HYDROcodone 325-5 MG Tab PO PRN ×5 (02:30→21:26)
[2023-08-03] MEDS: Sulfamethoxazole/Trimethoprim 800-160 MG Tab PO SCH ×2 (08:02→19:31)
[2023-08-03] MEDS: amLODIPine 2.5 MG Tab PO SCH (08:02)
[2023-08-03] MEDS: buPROPion 150 MG Tab.ER PO SCH (08:02)
[2023-08-03] MEDS: Furosemide 20 MG Tab PO SCH (08:02)
[2023-08-03] MEDS: VORTIOXETINE HYDROBROMIDE 20 MG PO SCH (10:17)
[2023-08-03] MEDS: Enoxaparin 30 MG/0.3 ML Syringe SUBCUT SCH (11:21)
[2023-08-03] MEDS: Cyclobenzaprine 10 MG Tab PO PRN ×2 (11:43→21:26)
[2023-08-03] MEDS: Zolpidem 5 MG Tab PO SCH ×2 (19:31→19:41)
[2023-08-03] MEDS: lamoTRIgine 100 MG Tab PO SCH (19:31)
[2023-08-03] MEDS ORDERED: ESZOPICLONE 3 MG PO SCH (20:00)
[2023-08-04] MEDS: Acetaminophen/HYDROcodone 325-5 MG Tab PO PRN ×2 (04:09→10:46)
[2023-08-04] MEDS: Furosemide 20 MG Tab PO SCH (07:33)
[2023-08-04] MEDS: amLODIPine 2.5 MG Tab PO SCH (07:33)
[2023-08-04] MEDS: VORTIOXETINE HYDROBROMIDE 20 MG PO SCH (07:34)
[2023-08-04] MEDS: Sulfamethoxazole/Trimethoprim 800-160 MG Tab PO SCH (07:34)
[2023-08-04] MEDS: buPROPion 150 MG Tab.ER PO SCH (07:35)
[2023-08-04 08:15] VITALS: BP 138/81; PULSE 63
[2023-08-04] MEDS: Enoxaparin 30 MG/0.3 ML Syringe SUBCUT SCH (11:39)
[2023-08-04] MEDS ORDERED: Morphine 4 MG/ML VIAL IVPUSH ONE (13:56)
== END 2023-08-04 14:20 | DRG 536 ==
LOC: CC.ED 16:05 → CC.MS 18:09 → CC.ED 18:09 → UNDOADMIN 18:09 → CC.MS 18:21
PROVIDERS: ADMIT Nurse Practitioner Family; ATTEND Nurse Practitioner Family
DX: S72.115A Nondisplaced fracture of greater trochanter of left femur, initial encounter for closed fracture (principal); N39.0 Urinary tract infection, site not specified; I10 Essential (primary) hypertension; Z66 Do not resuscitate; F41.9 Anxiety disorder, unspecified; M54.9 Dorsalgia, unspecified; G89.29 Other chronic pain; M19.90 Unspecified osteoarthritis, unspecified site; F32.A Depression, unspecified; Z96.659 Presence of unspecified artificial knee joint; Z96.619 Presence of unspecified artificial shoulder joint; Z97.8 Presence of other specified devices; Z88.8 Allergy status to other drugs, medicaments and biological substances; Z90.49 Acquired absence of other specified parts of digestive tract; Z87.440 Personal history of urinary (tract) infections; Z90.710 Acquired absence of both cervix and uterus; Z79.899 Other long term (current) drug therapy; Z98.1 Arthrodesis status; Z98.890 Other specified postprocedural states; Z88.1 Allergy status to other antibiotic agents; Z88.5 Allergy status to narcotic agent; W18.30XA Fall on same level, unspecified, initial encounter
CPT/HCPCS: 36415; 51702; 72192; 73700-LT; 80053; 81001; 81003; 85025; 90471; 96374; 97110-GP; 97161-GP; 99285-25; A9270-GY; J1650; J1885; J2270

== ENCOUNTER 2024-05-31 16:59 | Emergency (ER) | payer MEDICARE, OTHER ==
[2024-05-31 17:29] VITALS: BP 150/80; PULSE 75
[2024-05-31 17:51] LABS: BILIRUBIN,URINE NEGATIVE (NEGATIVE); GLUCOSE,URINE NEGATIVE (NEGATIVE); KETONES,URINE NEGATIVE (NEGATIVE); LEUKOCYTE ESTERASE,URINE SMALL (NEGATIVE); NITRITE,URINE NEGATIVE (NEGATIVE); OCCULT BLOOD,URINE SMALL (NEGATIVE); PROTEIN,URINE NEGATIVE (NEGATIVE); UROBILINOGEN,URINE 0.2 EU/dL (0.2-1.0)
[2024-05-31 17:52] LABS: APPEARANCE,URINE SLIGHTLY CLOUDY (CLEAR); COLOR,URINE DARK YELLOW (YELLOW)
[2024-05-31 17:57] LABS: BACTERIA,URINE MANY /HPF (NOT SEEN); WBC,URINE 50-75 /HPF (0-5)
[2024-05-31 18:09] LABS: BASOPHILS PERCENT AUTO 1.4 % (0-1); EOSINOPHILS ABSOLUTE AUTO 0.38 10^3/uL (0.00-1.50); EOSINOPHILS PERCENT AUTO 5.2 % (0-6); HEMATOCRIT 41.1 % (37.0-47.0); HEMOGLOBIN 13.1 g/dL (12.0-16.0); IMMATURE GRAN ABSOLUTE AUTO 0.05 10^3/uL (0.00-0.49); IMMATURE GRAN PERCENT AUTO 0.7 % (0.0-4.9); LYMPHOCYTES ABSOLUTE AUTO 2.02 10^3/uL (0.60-5.00); LYMPHOCYTES PERCENT AUTO 27.4 % (24-44); MEAN CORPUSCULAR HEMOGLOBIN 28.7 pg (27.0-32.0); MEAN CORPUSCULAR HGB CONC 31.9 g/dL (32.0-36.0); MEAN CORPUSCULAR VOLUME 89.9 fL (83.0-97.0); MONOCYTES ABSOLUTE AUTO 0.77 10^3/uL (0.00-1.50); MONOCYTES PERCENT AUTO 10.4 % (0-10); NEUTROPHILS ABSOLUTE AUTO 4.05 x10^3/uL (1.80-8.00); NEUTROPHILS PERCENT AUTO 54.9 % (41-71); PLATELET COUNT,PLT 355 10^3/uL (150-400); RED BLOOD CELL COUNT 4.57 x10^6/uL (4.00-5.50); WHITE BLOOD CELL COUNT,WBC 7.4 10^3/uL (4.0-11.0)
[2024-05-31 18:22] LABS: BILIRUBIN TOTAL 0.4 mg/dL (0.0-1.0); C-REACTIVE PROTEIN 2.48 mg/dL (<=0.50); CREATININE 1.7 mg/dL (0.6-1.0); EST CRCL DRUG DOSING (CG) 26.09 mL/min; POTASSIUM,K 4.1 mEq/L (3.5-5.0); PROTEIN TOTAL,TP 7.8 g/dL (6.4-8.2)
== END 2024-05-31 19:40 | disposition left against medical advice (07) ==
LOC: CC.ED 16:59
DX: N30.01 Acute cystitis with hematuria (principal); I10 Essential (primary) hypertension; Z90.49 Acquired absence of other specified parts of digestive tract; Z79.899 Other long term (current) drug therapy; Z88.1 Allergy status to other antibiotic agents; Z88.5 Allergy status to narcotic agent
CPT/HCPCS: 36415; 74176; 80053; 81001; 85025; 86140; 87086; 87088; 87186; 99284